=== PATIENT | female | born 1980 | race Caucasian/White ===

== ENCOUNTER 2017-05-05 21:22 | Emergency (ER) | payer BC ==
--- NOTE | ~2017-05-05 | ER ---
PATIENT'S NAME: ALESSANDRO STERN [facility] AGE: 36 Y [address] ROOM: [place], [place] [address] LOCATION: [facility] ADMIT DATE: 05/05/2017 ER/Outpatient Report DISCHARGE DATE: 05/06/2017 FAMILY PHYSICIAN: PHYSICIAN, NO ATTENDING PHYSICIAN: Mason Dunham TIME OF PATIENT ARRIVAL: 2122 hours. TIME OF PATIENT EVALUATION: 2133 hours. CHIEF COMPLAINT: Abdominal pain. HISTORY OF PRESENT ILLNESS: This is a 36-year-old female who presents to the ER. States she is having abdominal cramping, pain, and bloody stools since yesterday. She went to her primary care physician for this yesterday. She states that they did some labs and they ended up doing a scope on her, and did not see any active bleeding. They send her home. She states since then she has had some nausea and vomiting. She has continued to have bloody stools. She did bring a stool sample to the lab that her primary care physician ordered prior to checking into the ER. She describes her pain as sharp and stabbing in nature. Also crampy. She states it has crossed her lower abdomen. She states that she has not been running any fevers. Has had some chills. No troubles with urination. The patient states that no one else at home is ill at this time. She states she has no family history of Crohn or colon problems. ALLERGIES: SULFA AND PENICILLIN. MEDICATIONS: None. PAST MEDICAL HISTORY: Negative. PAST SURGICAL HISTORY: Right shoulder, left shoulder, left knee, and three sections. SOCIAL HISTORY: She smokes half pack a day for last 5 years. Denies any drug or alcohol use. REVIEW OF SYSTEMS: PATIENT'S NAME: ALESSANDRO STERN [facility] AGE: 36 Y [address] ROOM: [place], [place] [address] LOCATION: [facility] ADMIT DATE: 05/05/2017 ER/Outpatient Report DISCHARGE DATE: 05/06/2017 FAMILY PHYSICIAN: PHYSICIAN, NO ATTENDING PHYSICIAN: Mason Dunham All systems were reviewed and were negative with the exception of those discussed in the HPI. PHYSICAL EXAMINATION: VITAL SIGNS: Weight is 74 kg. Blood pressure is 116/63, pulse 94, respirations 20, temperature 99.6 degrees, tympanically; and saturations 97% on room air. Refugio Coma Score is 15. GENERAL: Alert, calm, well-developed female, in [id number] distress. HEENT: Head; normocephalic. She does display moist mucous membranes. LUNGS: Clear to auscultation bilaterally. HEART: Regular rate and rhythm. ABDOMEN: Soft. She has generalized tenderness in all 4 quadrants with palpation. She has good bowel sounds throughout. She does not have any guarding or rebound tenderness. NEUROLOGIC: Cranial nerves 2 through 12 grossly intact. Gait is steady without assistance. SKIN: Warm, dry, and intact. LABORATORY DATA: CBC; white count is 15.8, hemoglobin is 14.6, platelets 287,000, and ANC is 12.1. INR is 0.96. CMS was unremarkable. HCG is less than 1.0. Urinalysis was negative for any infection. I did call the laboratory and added on more stool studies for the patient. It did come back E. coli, EPEC positive. CT scan shows prominent colonic wall thickening involving the transverse colon with adjacent inflammatory changes. IMPRESSION: Abdominal pain, and bloody stool secondary to Escherichia coli. ASSESSMENT AND PLAN: We did start an IV here in the emergency room. We did give her some IV fluids along with 4 mg of Zofran and a total of 6 mg of morphine during her stay. I did discuss the patient's care with Dr. Dunham. We will dismiss the patient to home with prescription for Cipro and Percocet to use as directed. She needs to monitor her symptoms closely. I advised her to take some probiotics, continue to push clear fluids. Wright diet. Stay away from dairy products, and follow up with her primary care physician if she is not improving in the next 2 to 3 days. The patient understands and agrees with care. DADA ALEMAN PA-C FOR MD JAILYN GIL/arabella PATIENT'S NAME: ALESSANDRO STERN [facility] AGE: 36 Y [address] ROOM: [place] [id number] LOCATION: [facility] ADMIT DATE: 05/05/2017 ER/Outpatient Report DISCHARGE DATE: 05/06/2017 FAMILY PHYSICIAN: JUDITH HUIZAR ATTENDING PHYSICIAN: Mason Dunham /[id number] d: t: 05/15/17 1319, OUTPATIENT REPORT
[2017-05-05 22:15] LABS: BASOPHIL % 0.2 %; EOSINOPHIL # 0.3 K/uL (0.0-0.5); EOSINOPHIL % 1.7 %; HEMATOCRIT 41.9 % (33.0-46.0); HEMOGLOBIN 14.6 g/dL (11.0-15.0); IMMATURE GRANULOCYTE # 0.1 K/uL (0.0-0.3); IMMATURE GRANULOCYTE % 0.4 %; LYMPHOCYTE # 2.3 K/uL (0.8-4.0); LYMPHOCYTE % 14.4 %; MCH 30.9 pg (27.0-34.0); MCHC 34.8 gm/dL (32.0-36.5); MCV 88.8 fl (83.0-98.0); MONOCYTE # 1.1 K/uL (0.0-1.0); MONOCYTE % 6.6 %; MPV 11.1 fl (9.4-12.4); NEUTROPHIL # (ANC) 12.1 K/uL (1.8-7.8); NEUTROPHIL % 76.7 %; NRBC % 0 /100WBC (0-0.00); PLATELET COUNT 287 K/uL (150-450); RBC 4.72 M/uL (3.50-5.50); RDW-CV 12.3 % (11.9-14.6); WBC 15.8 K/uL (4.0-11.0)
[2017-05-05 22:24] LABS: INR - (THERAPEUTIC) 0.96 (0.92-1.07); PROTIME 10.1 SECONDS (9.8-11.4); PTT 28 SECONDS (25-32)
[2017-05-05 22:34] LABS: ALBUMIN 3.7 gm/dL (3.5-5.0); ALK PHOS 76 IU/L (33-138); ALT 23 IU/L (12-78); ANION GAP 12.9 (10.0-19.0); AST 19 IU/L (10-40); BLOOD UREA NITROGEN 8 mg/dL (6-24); CALCIUM 8.6 mg/dL (8.5-10.5); CHLORIDE 107 mMol/L (96-110); CO2 22 mMol/L (22-32); CREATININE 0.9 mg/dL (0.5-1.1); POTASSIUM 3.9 mMol/L (3.7-5.1); SODIUM 138 mMol/L (135-145); TOTAL BILIRUBIN 0.5 mg/dL (0.0-1.5); TOTAL PROTEIN 7.8 g/dL (6.0-8.4)
[2017-05-05 23:15] LABS: C DIFFICILE TOXIN A/B Not Detected (Not Detect); CAMPYLOBACTER SPECIES Not Detected (Not Detect); PLESIOMONAS SPECIES Not Detected (Not Detect); SALMONELLA SPECIES Not Detected (Not Detect); VIBRIO CHOLERAE Not Detected (Not Detect); VIBRIO SPECIES Not Detected (Not Detect); YERSINIA ENTEROCOLITICA Not Detected (Not Detect)
[2017-05-05 23:17] LABS: ADENOVIRUS F 40/41 Not Detected (Not Detect); ASTROVIRUS Not Detected (Not Detect); CRYPTOSPORIDIUM Not Detected (Not Detect); CYCLOSPORA CAYETANENSIS Not Detected (Not Detect); E. COLI (EPEC) DETECTED (Not Detect); E. COLI (ETEC) Not Detected (Not Detect); E. COLI (STEC) Not Detected (Not Detect); ENTAMOEBA HISTOLYTICA Not Detected (Not Detect); GIARDIA LAMBLIA Not Detected (Not Detect); NOROVIRUS GI/ GII Not Detected (Not Detect); ROTAVIRUS A Not Detected (Not Detect); SAPOVIRUS Not Detected (Not Detect); SHIGELLA AND EIEC Not Detected (Not Detect)
[2017-05-05 23:33] LABS: BILIRUBIN URINE NEGATIVE (NEGATIVE); BLOOD URINE 50 /UL (NEGATIVE); COLOR URINE YELLOW (YELLOW); GLUCOSE URINE NEGATIVE (NEGATIVE); KETONE URINE NEGATIVE (NEGATIVE); LEUKOCYTES URINE 25 /UL (NEGATIVE); NITRITE URINE NEGATIVE (NEGATIVE); PROTEIN URINE NEGATIVE (NEGATIVE); SPEC GRAVITY URINE 1.015 (1.003-1.035); TURBIDITY URINE CLEAR (CLEAR); UROBILINOGEN URINE NORMAL (NORMAL)
[2017-05-05 23:42] LABS: BACTERIA URINE NEGATIVE (NEGATIVE); WBC URINE 0-2 #/HPF (NEGATIVE)
== END 2017-05-06 00:37 | disposition disaster alternative care site (69) ==
LOC: GMED 21:22
PROVIDERS: Physician Assistant Medical
DX: K92.1 Melena (principal); B96.20 Unspecified Escherichia coli [E. coli] as the cause of diseases classified elsewhere; Z88.2 Allergy status to sulfonamides; Z88.0 Allergy status to penicillin; F17.210 Nicotine dependence, cigarettes, uncomplicated
CPT/HCPCS: J2270; J2405; J7030; Q9967